=== PATIENT | male | born 1995 | race Caucasian/White ===

== ENCOUNTER 2022-10-20 18:57 | Emergency (ER) | payer BC, SELFPAY ==
[2022-10-20 19:05] VITALS: BP 135/79; PULSE 84; RESP 18; TEMP 37.2; O2SAT 99; BMI 17.2
[2022-10-20 19:18] VITALS: BP 130/78; PULSE 70; RESP 19; TEMP 36.9; O2SAT 98; BMI 17.2
--- NOTE | 2022-10-20 20:05 | EXP.UTC ---
Discharge Plan Disposition Patient Disposition: Home, Self-Care Condition: Good Prescriptions Prescriptions: New amoxicillin-pot clavulanate 875-125 mg Tablet 1 tab PO Q12H Qty: 20 0RF ibuprofen 600 mg tablet 600 mg PO Q6HP PRN (Reason: Moderate Pain) Qty: 20 0RF Referrals Follow up/Referrals: Provider,Referral, [Primary Care Provider] - See instructions Activity Restrictions/Add. Instructions Additional Instructions/Restrictions: Take medication as prescribed if you need something more than the Ibuprofen for pain you may take Tylenol Take antibiotics as prescribed Gargle warm salt water may help with discomfort and pain Call Dentist tomorrow and make appointment may take you a week or so to get in Rinse your mouth every 2 hours with salt water.?This will help keep the area clean. Gently brush your teeth twice a day with a soft tooth brush.?This will help keep the area clean. Eat soft foods as directed.?Soft foods may cause less pain. Examples include applesauce, yogurt, and cooked pasta. Apply a warm compress to your tooth or gum.?Use a cotton ball or gauze soaked in warm water. Remove the compress in 10 minutes or when it becomes cool. Repeat 3 times a day. Straight to ER if any life threatening symptoms Clinical Impressions Clinical Impression: Dental abscess Instructions Patient Instructions: Amoxicillin and Clavulanic Acid, DI for Tooth Abscess, DI for Tooth Decay Discharge ED Provider: Tami Wright [facility] General Stated complaint: Right side face pain and gum pain Mode of Arrival: Ambulatory Source of Information: Patient Limitations: No Limitations Time Seen by Provider: 10/20/22 20:10 Description of Symptoms (Recalled from Triage Doc. by RN): right bottom side of jaw is swollen and sore jaw HEENT Symptoms (Recalled from RN notes): Yes Resp Symptoms (Recalled from RN notes): No Skin Symptoms (Recalled from RN notes): No MS Symptoms (Recalled from RN notes): No Functional Status (Recalled from RN notes): n/a History of Present Illness Provider Complaint: Patient states that he has multiple teeth that is shattered States that he has several on his right lower gumline that is broke off at the gum States that he has had a knot on his right lower jaw area for several days that has got more swollen States that he has been using salt water gargles and it has helped a little but it is causing his whole jaw to hurt and shoot pain up through his jaw Related Data Previous Rx's Medication Instructions Recorded amoxicillin 875 mg-potassium 1 tab PO Q12H #20 tabs 10/20/22 clavulanate 125 mg tablet ibuprofen 600 mg tablet 600 mg PO Q6HP PRN Moderate Pain 10/20/22 #20 tabs Allergies Allergy/AdvReac Type Severity Reaction Status Date / Time No Known Allergies Allergy Verified 10/20/22 19:23 Worker's Comp Is this a Worker's Comp case?: No PFSH [facility] Disclaimer: The information contained in this section may have been updated after the patient was seen, as this information can be updated by other users. Social History Smoking Status: Current every day smoker alcohol intake: current current occupational status: unemployed Travel in the last 8 weeks: None ROS Obtained: Yes All systems reviewed & no additional complaints except as documented and Yes Systems reviewed as appropriate & no additional complaints except as documented Constitutional Constitutional: Reports system reviewed and no additional complaints, except as documented, Reports as per HPI and Denies fever(s) Eyes Eyes: Reports system reviewed and no additional complaints, except as documented and Reports as per HPI ENT Ears, Nose, Mouth, and Throat: Reports system reviewed and no additional complaints, except as documented, Reports as per HPI and Reports dental pain (swelling in right lower jaw area) Respiratory Respiratory: Reports system reviewed and no additional complaints, except as documented and Reports as
[2022-10-20 20:30] VITALS: BP 110/78; PULSE 86; RESP 18; TEMP 37.1; O2SAT 100
== END 2022-10-20 20:29 | disposition home or self-care (01) ==
PROVIDERS: Emergency Provider Nurse Practitioner
DX: R22.0 Localized swelling, mass and lump, head (principal); R51.9 Headache, unspecified; F17.210 Nicotine dependence, cigarettes, uncomplicated
CPT/HCPCS: 99204; 99212; G0463

== ENCOUNTER 2024-04-06 22:47 | Emergency (ER) | payer BC, SELFPAY ==
[2024-04-06 22:56] VITALS: BP 112/72; PULSE 80; RESP 18; TEMP 36.6; O2SAT 98; BMI 16.7
[2024-04-06 23:30] VITALS: BP 97/58; PULSE 84; O2SAT 95
--- NOTE | 2024-04-06 23:36 | XR_ITS ---
PROCEDURE INFORMATION: Exam: XR Chest Exam date and time: 04/06/2024 11:45 PM Age: 28 years old Clinical indication: Other: Syncope TECHNIQUE: Imaging protocol: Radiologic exam of the chest. Views: 2 views. COMPARISON: No relevant prior studies available. FINDINGS: Lungs: Unremarkable. No consolidation. Pleural spaces: Unremarkable. No pleural effusion. No pneumothorax. Heart/Mediastinum: Unremarkable. No cardiomegaly. Vasculature: Unremarkable. Bones/joints: Unremarkable. IMPRESSION: No acute findings.
--- NOTE | 2024-04-06 23:37 | CT_ITS ---
PROCEDURE INFORMATION: Exam: CT Abdomen And Pelvis With Contrast Exam date and time: 04/07/2024 12:06 AM Age: 28 years old Clinical indication: Abdominal pain; Additional info: Rlq abd pain TECHNIQUE: Imaging protocol: Computed tomography of the abdomen and pelvis with contrast. Radiation optimization: All CT scans at this facility use at least one of these dose optimization techniques: automated exposure control; mA and/or kV adjustment per patient size (includes targeted exams where dose is matched to clinical indication); or iterative reconstruction. Contrast material: ISOVUE; Contrast volume: 75 ml; Contrast route: IV; COMPARISON: CR XR CHEST 2V 04/06/2024 11:45 PM FINDINGS: Lungs: No acute finding. Liver: Normal. No mass. Gallbladder and biliary ducts: Normal. No calcified stones. No ductal dilation. Pancreas: Normal. No ductal dilation. Spleen: Normal. No splenomegaly. Adrenal glands: Normal. No mass. Kidneys and ureters: No hydronephrosis or stone disease. 8 mm cortical hypodensity lateral left kidney too small to fully characterize. Stomach and bowel: Unremarkable. No obstruction. No mucosal thickening. Appendix: No evidence of appendicitis. Intraperitoneal space: Unremarkable. No free air. No significant fluid collection. Vasculature: Unremarkable. No abdominal aortic aneurysm. Lymph nodes: Unremarkable. No enlarged lymph nodes. Urinary bladder: Unremarkable as visualized. Reproductive: Unremarkable as visualized. Bones/joints: Unremarkable. No acute fracture. Soft tissues: Unremarkable. IMPRESSION: There is no acute process evident within the abdomen or pelvis. Normal appendix. COMMENTS: Consistent with the [employer]'s Incidental Findings Committee white paper (J Am Natalia Radiol 2018): Any incidental renal lesion less than 1 cm or classified as too small to characterize, or any incidental cystic renal lesion characterized as simple-appearing, is likely benign. No follow-up imaging is recommended for these lesions per consensus recommendations based on imaging criteria.
--- NOTE | 2024-04-06 23:50 | ECG_ITS ---
APPROVED REPORT Exam: Resting ECG HR:72 bpm ECG Measurements Heart Rate 72 AXES DE 110 P 55 QRSd 97 QRS 84 QT 371 T 15 QTc 396 Conclusion SINUS RHYTHM WITH SHORT DE INTERVAL No delta wave, isolated T wave inversion in lead III, no STEMI Electronically signed by : ANASTASIA HALL, 04/07/2024 07:38:06
[2024-04-06 23:54] LABS: Basophils # 0.1 K/mm3 (0-0.2); Basophils % 0.5 % (0.1-2.0); Eosinophils # 0.1 K/mm3 (0.0-0.4); Eosinophils % 0.7 % (0.1-12.0); Hematocrit 44.1 % (42.0-52.0); Hemoglobin 14.9 g/dL (14.1-18.0); Lymphocytes # 2.3 K/mm3 (0.7-4.5); Lymphocytes % 15.9 % (10-50); Mean Corpuscular HGB Conc 33.8 g/dL (31.8-35.4); Mean Corpuscular Hemoglobin 31.5 pg (27.0-31.2); Mean Corpuscular Volume 93.1 fl (80-94); Mean Platelet Volume 9.7 fl (7.4-10.4); Monocytes # 0.7 K/mm3 (0.1-1.0); Monocytes % 4.6 % (1.7-9.3); Neutrophils # 11.4 K/mm3 (1.8-7.8); Neutrophils % 78.4 % (37.0-80.0); Platelet Count 212 K/mm3 (142-424); Red Blood Count 4.73 M/mm3 (4.60-6.20); Red Cell Distribution Width 12.9 % (11.5-17.5); White Blood Count 14.6 K/mm3 (4.8-10.8)
[2024-04-06] MEDS: LACTATED RINGERS 1000ML 1,000 ML 999 ML IV (23:56)
[2024-04-06] MEDS: KETOROLAC 30MG/ML VIAL 15 MG IV (23:57)
[2024-04-07] VITALS (8 sets, daily range): BP systolic 91–105; BP diastolic 53–67; PULSE 70–93; RESP 16; TEMP 36.6; O2SAT 96–100
--- NOTE | 2024-04-07 | PC.NURSE ---
Bladder scanned pt per MD 0mL
--- NOTE | 2024-04-07 00:01 | ED_ITS ---
Discharge Plan Disposition Patient Disposition: Home, Self-Care Condition: Good Prescriptions Prescriptions: No Action amoxicillin-pot clavulanate 875-125 mg Tablet 1 tab PO Q12H Qty: 20 0RF ibuprofen 600 mg tablet 600 mg PO Q6HP PRN (Reason: Moderate Pain) Qty: 20 0RF Referrals Follow up/Referrals: Provider,Referral, [Primary Care Provider] - See instructions Activity Restrictions/Add. Instructions Additional Instructions/Restrictions: You were evaluated in the ER and are appropriate for discharge at this time. Please make an appointment with your primary care doctor for reevaluation in 2 to 3 days. Drink plenty of water and eat a well-balanced diet. Return to the ER with new, worsening, or otherwise concerning symptoms. Clinical Impressions Clinical Impression: Syncope Instructions Patient Instructions: DI for Syncope in Adults (Fainting), DI for Syncope in Children (Fainting) Print Language Print Language: Tajik Discharge ED Provider: Del Iraheta General Adult HPI General Chief complaint: Syncope Stated complaint: passed out, constipation Time Seen by Provider: 04/06/24 23:15 Mode of Arrival: Ambulatory Source of Information: Patient Limitations: No Limitations Description of Symptoms (Recalled from ER Triage Doc. by RN): Pt reports to ED with cc of having a syncope episode. Pt states he was walking into the restroom when he passed out. Pt is unsure if he hit his head. Pt states having no symptoms prior to passing out. Pt states having blurry vision after waking up from passing out which has now cleared. Pt states having RLQ pain. PT states not being able to pee he states he feels like he has to pee then he isnt able to pee. Pt states having a bowel movement today. Pt denies any head, neck, or back pain. History of Present Illness HPI narrative: 28-year-old male presents to the ER after syncope. Patient states he stood up from a chair, walked to the restroom, had tunnel vision, and passed out. He believes he likely hit his head but immediately woke up. He states he briefly had blurry vision when he woke up but that completely cleared. He had no evidence of seizure-like activity, no tongue biting, did not urinate on himself, no history of seizures. Patient reports he is having right side/lower quadrant pain. He states he is having difficulty urinating and occasional dysuria. He states like he is needing to urinate but not passing much urine. He admits to occasionally having mild dysuria but no abnormal discharge, no concern for STI, no lesions. He states he did have a bowel movement today. He denies any other symptoms of being ill. He admits he has not had much to eat or drink in the last 24 hours. He denies fevers, chills, chest pain, difficulty breathing, he denies his syncopal episode being preceded by chest pain or headache, he denies nausea, vomiting, or diarrhea. Patient denies any daily medications or known drug allergies. Patient does admit to using marijuana earlier this evening, hours before his syncopal episode. He denies any other illicit drug use or IV drug use. He denies using any alcohol today. Related Data Previous Rx's ?Medication ?Instructions ?Recorded amoxicillin 875 mg-potassium 1 tab PO Q12H #20 tabs 10/20/22 clavulanate 125 mg tablet ibuprofen 600 mg tablet 600 mg PO Q6HP PRN Moderate Pain 10/20/22 #20 tabs Allergies Allergy/AdvReac Type Severity Reaction Status Date / Time No Known Allergies Allergy Verified 10/20/22 19:23 [facility] Disclaimer: The information contained in this section may have been updated after the patient was seen, as this information can be updated by other users. Social History (Updated 10/20/22 @ 20:23 by Tami Wright APRN) Smoking Status: Never smoker alcohol intake: current alcohol intake frequency: a few times a week current occupational status: unemployed Travel in the last 8 weeks: None ROS Obtained: Yes All systems reviewed & no additional complaints except as documented Positive ROS per HPI Physical Exam General General appearance: alert and in no apparent distress Head Head exam: atraumatic and normocephalic Eye Eye exam: Present PERRL and EOMI ENT ENT exam: Present mucous membranes moist and other (Poor dentition with numerous dental caries) Neck Neck exam: Present normal inspection and full ROM Chest Chest inspection: Present symmetric chest wall rise Respiratory Respiratory exam: Absent respiratory distress or stridor Cardiovascular Cardiovascular exam: Present regular rate and normal rhythm Abdominal Exam Abdominal exam: Present soft and tenderness (Mild right mid and lower quadrant abdominal tenderness); Absent distention, guarding or rebound exam: Present normal inspection (No discharge or lesions); Absent testicular tenderness or scrotal swelling Extremities Exam Extremities exam: Present full ROM Back Exam Back exam: Absent CVA tenderness (R) or CVA tenderness (L) Neurological Exam Neurological exam: Present alert and oriented X3; Absent motor sensory deficit Psychiatric Psychiatric exam: Present normal affect and normal mood Skin Skin exam: Present warm and dry Medical Decision Making Medical Records Medical records reviewed: Yes I reviewed the patient's medical records. Screening: Per USPSTF and CDC recommendations, given the prevalence of disease in our region, it is our hospital?s policy to screen for HIV and viral Hepatitis for all patients aged 18 and over and those with ongoing risk factors. MR Comment: Patient was treated in [facility] in September for dental abscess. [place] Inquiry Pt receiving controlled substance: No Vital Signs: 04/06/24 22:56 04/06/24 23:30 04/07/24 00:30 Temperature 97.8 F Temperature Source Oral Pulse Rate 84 77 Pulse Rate [Left Radial] 80 Pulse Rate [Orthostatic Lying Left Radial] Pulse Rate [Orthostatic Sitting Left Radial] Pulse Rate [Orthostatic Standing Left Radial] Respiratory Rate 18 Blood Pressure 97/58 L 97/59 L Blood Pressure [Orthostatic Lying Right Arm] Blood Pressure [Orthostatic Sitting Right Arm] Blood Pressure [Orthostatic Standing Right Arm] Blood Pressure [Right Arm] 112/72 Blood Pressure Mean [Right Arm] 85 Blood Pressure Source [Right Arm] Automatic Cuff Blood Pressure Position [Right Arm] Sitting 02 Sat by Pulse Oximetry 98 95 96 Oxygen Delivery Method Room Air 04/07/24 01:13 04/07/24 01:14 04/07/24 01:17 Temperature Temperature Source Pulse Rate 85 76 Pulse Rate [Left Radial] Pulse Rate [Orthostatic Lying Left Radial] 70 Pulse Rate [Orthostatic Sitting Left Radial] 73 Pulse Rate [Orthostatic Standing Left Radial] 93 H Respiratory Rate Blood Pressure 98/60 L 96/64 L Blood Pressure [Orthostatic Lying Right Arm] 98/60 L Blood Pressure [Orthostatic Sitting Right Arm] 96/64 L Blood Pressure [Orthostatic Standing Right Arm] 91/62 L Blood Pressure [Right Arm] Blood Pressure Mean [Right Arm] Blood Pressure Source [Right Arm] Blood Pressure Position [Right Arm] 02 Sat by Pulse Oximetry 100 100 Oxygen Delivery Method 04/07/24 01:30 04/07/24 02:00 04/07/24 02:30 Temperature Temperature Source Pulse Rate 87 75 78 Pulse Rate [Left Radial] Pulse Rate [Orthostatic Lying Left Radial] Pulse Rate [Orthostatic Sitting Left Radial] Pulse Rate [Orthostatic Standing Left Radial] Respiratory Rate Blood Pressure 97/53 L 100/62 L 104/67 L Blood Pressure [Orthostatic Lying Right Arm] Blood Pressure [Orthostatic Sitting Right Arm] Blood Pressure [Orthostatic Standing Right Arm] Blood Pressure [Right Arm] Blood Pressure Mean [Right Arm] Blood Pressure Source [Right Arm] Blood Pressure Position [Right Arm] 02 Sat by Pulse Oximetry 97 98 98 Oxygen Delivery Method Lab Data Lab Results 04/06/24 23:44: WBC 14.6 H, RBC 4.73, Hgb 14.9, Hct 44.1, MCV 93.1, MCH 31.5 H, MCHC 33.8, RDW 12.9, Plt Count 212, MPV 9.7, Neut % (Auto) 78.4, Lymph % (Auto) 15.9, [place] % (Auto) 4.6, Eos % (Auto) 0.7, Baso % (Auto) 0.5, Neut # (Auto) 11.4 H, Lymph # (Auto) 2.3, [place] # (Auto) 0.7, Eos # (Auto) 0.1, Baso # (Auto) 0.1, P T 13.3 H, INR 1.21 H, Sodium 136, Potassium 3.7, Chloride 104, Carbon Dioxide 32 H, Anion Gap 3.7 L, BUN 14, Creatinine 1.00, Estimated Creat Clear 78, Estimated GFR 89, Est GFR ( Amer) 108, Glucose 113 H, Calcium 9.2, Total Bilirubin 0.6, AST 25, ALT 21, Alkaline Phosphatase 42, Troponin I < 0.01, Total Protein 6.9, Albumin 4.5, Globulin 2.4, Albumin/Globulin Ratio 1.9 H, HIV 1&2 Antibody Rapid Nonreactive 04/07/24 00:40: Urine Color Yellow, Urine Appearance Clear, Urine pH 5.5, Ur Specific [place] <= 1.005, Urine Protein Negative, Urine Glucose (UA) Negative, Urine Ketones Negative, Urine Blood Negative, Urine Nitrate Negative, Urine Bilirubin Negative, Urine Urobilinogen 0.2, Ur Leukocyte Esterase Negative, Urine WBC Occasional, Ur Squamous Epith Cells Occasional, Urine Bacteria Trace 10/10/24 02:29: Troponin I < 0.01 04/06/24 23:44 04/06/24 23:44 Orders (Tests/Meds): ED MEDICATIONS Generic Name Dose Route Start Last Admin Trade Name Nick PRN Reason Stop Dose Admin Sodium Chloride 10 ml 04/07/24 00:11 04/07/24 00:11 Sodium Chloride 0.9% 10ml Syr (Rad Only) IV 05/07/24 00:10 10 ml NEEDED PRN Administration Maintain IV Site Discontinued Medications Generic Name Dose Route Start Last Admin Trade Name Freq PRN Reason Stop Dose Admin Lactated Ringer's 1,000 mls @ 999 mls/hr 04/06/24 23:54 04/06/24 23:56 Lactated Ringer's 1000 Ml Bag IV 04/07/24 00:54 999 mls/hr .Q1H1M ONE Administration Iopamidol 75 ml 04/07/24 00:11 04/07/24 00:11 Iopamidol-370 (76%);100ml Bottle IV 04/07/24 00:12 75 ml ONCE ONE Administration Ketorolac Tromethamine 15 mg 04/06/24 23:55 04/06/24 23:57 Ketorolac 30mg/Ml Vial IV 04/06/24 23:56 15 mg ONCE ONE Administration ORDERS Category Date Time Status CT abdomen pelvis w con Stat Cat Scan 04/06/24 23:37 Completed CXR 2 view (NOT portable) [XR chest 2V] Stat Exams 04/06/24 23:36 Completed CBC w/Auto Diff [Complete Blood Count Auto Diff] Stat Lab 04/06/24 23:44 Completed CMP [Comprehensive Metabolic Panel] Stat Lab 04/06/24 23:44 Completed HIV (1&2) Antibody Rapid Stat Lab 04/06/24 23:44 Completed Hep C Ab with Reflex to RNA Stat Lab 04/06/24 23:44 Received PT INR [Prothrombin Time INR] Stat Lab 04/06/24 23:44 Completed Trop I [Troponin I] Stat Lab 04/06/24 23:44 Completed Troponin I Q3H Lab 04/07/24 02:29 Completed Troponin I Q3H Lab 04/07/24 05:45 Ordered Urinalysis and Microscopic Stat Lab 04/07/24 00:40 Completed Medical Decision Narrative: In summary, this 28-year-old male presents to the emergency department today with syncope, dysuria, difficulty urinating, right lower quadrant discomfort. On initial evaluation patient is hemodynamically stable, afebrile, poor dentition, mild right mid abdomen and right lower quadrant abdominal tenderness without rebound or guarding, nonacute abdomen, no CVA tenderness. Differential diagnosis includes but is not limited to vasovagal syncope, I considered the possibility of arrhythmia, WPW, Brugada, HCM, electrolyte abnormality, dehydration, UTI, STI, pyelonephritis, kidney stone, appendicitis, biliary pathology, among others.. Based on these concerns, I ordered serum labs, ECG, troponin, chest x- ray, CT imaging. ECG personally interpreted demonstrates sinus rhythm, rate 72, normal axis, MD is slightly short but there is no delta wave, no findings of Brugada or HCM, no STEMI. Patient received IV fluids, Toradol for treatment. Labs personally reviewed demonstrate leukocytosis with WBC 14.6, normal hemoglobin, platelet normal at 212, PT/INR slightly elevated but nonspecific, nonactionable, CMP nonactionable, good kidney function, initial troponin undetectably low at less than 0.01, UA negative for findings of infection, no blood. Chest x-ray personally interpreted demonstrates no acute intrathoracic abnormality, see radiology read for final interpretation. CT imaging personally interpreted demonstrate no acute intra-abdominal or pelvic pathology, no findings of appendicitis, cholecystitis, kidney stone, or other abnormality. See radiology read for final interpretation. Orthostatic vitals overall reassuring, there was an increase in heart rate when patient went from sitting to standing however his blood pressure stayed stable in the 90s. Despite patient reporting he was been having difficulty urinating, he has passed urine freely in the ER and has postvoid residual of 0 mL in the bladder. Repeat troponin also undetectably low at less than 0.01. Patient has very reassuring cardiac workup, no findings of high risk syncope. On reassessment patient states his pain is resolved. He feels well at this time. He is tolerating oral intake and has eaten a sandwich and drink a full bottle of water. I believe he is appropriate for discharge with close outpatient follow-up. Patient was given instructions on symptomatic management, follow up instructions, and return precautions for the emergency department. Patient indicated understanding and was discharged in stable condition. Critical Care Critical Care Time Critical Care Time: No
[2024-04-07 00:03] LABS: INR 1.21 (0.9-1.1); Prothrombin Time 13.3 seconds (10.1-12.5)
[2024-04-07 00:09] LABS: Alanine Aminotransferase 21 U/L (12-78); Albumin Level 4.5 g/dl (3.5-5.0); Albumin/Globulin Ratio 1.9 (1.1-1.8); Alkaline Phosphatase 42 U/L (38-126); Anion Gap 3.7 mEq/L (5-15); Aspartate Amino Transferase 25 U/L (17-59); Bilirubin,Total 0.6 mg/dl (0.2-1.3); Blood Urea Nitrogen 14 mg/dl (9-20); Calcium 9.2 mg/dl (8.4-10.2); Carbon Dioxide 32 mmol/L (22.0-30.0); Chloride 104 mmol/L (98-107); Creatinine Clearance Estimated 78 mL/min (50-200); Estimated Glomerular Filt Rate 89 ml/min (>60); GFR (African American) 108 ML/MIN (>60); Globulin 2.4 g/dL (1.3-3.2); Glucose 113 mg/dl (74-100); Potassium 3.7 mmoL/L (3.5-5.1); Sodium 136 mmol/L (136-145); Total Protein,Serum 6.9 g/dl (6.3-8.2)
[2024-04-07] MEDS: SODIUM CHLORIDE 0.9% 10ML SYR (RAD ONLY) 10 ML IV (00:11)
[2024-04-07] MEDS: IOPAMIDOL-370 (76%);100ML BOTTLE 75 ML IV (00:11)
[2024-04-07 00:23] LABS: Troponin I < 0.01 ng/ml (0.00-0.034)
[2024-04-07 00:28] LABS: HIV (1&2) Antibody Rapid NONREACTIVE (NONREACTIVE)
[2024-04-07 00:47] LABS: Microscopic, Urine URINE MICROSCOPIC (MICROSCOPIC)
[2024-04-07 00:48] LABS: Appearance,Urine CLEAR (Clear); Bilirubin,Urine Negative (Negative); Blood, Urine Negative (Negative); Color,Urine YELLOW (Yellow); Glucose,Urine (UA) Negative (Negative); Ketones,Urine Negative (Negative); Leukocyte Esterase,Urine Negative (Negative); Nitrate,Urine Negative (Negative); PH,Urine 5.5 (5.0-8.5); Protein,Urine Negative (Negative); Specific Gravity, Urine <= 1.005 (1.005-1.030); Urobilinogen,Urine 0.2 EU/dl (0.2)
--- NOTE | 2024-04-07 00:50 | PC.NURSE ---
urine collected and sent to lab
[2024-04-07 01:01] LABS: Bacteria,Urine Trace /lpf; Squamous Epithelial Cell,Urine Occasional #/hpf (0-5); WBC,Urine Occasional #/hpf (0-3)
--- NOTE | 2024-04-07 01:34 | PC.NURSE ---
Bladder scan post residual 0mL
[2024-04-07 02:57] LABS: Troponin I < 0.01 ng/ml (0.00-0.034)
[2024-04-08 09:15] LABS: HCV Ab Non Reactive (Non Reactive)
[2024-04-08 20:14] LABS: Neisseria gonorrhoeae, NAA Negative (Negative)
== END 2024-04-07 03:10 | disposition home or self-care (01) ==
PROVIDERS: Emergency Medicine; Emergency Provider Nurse Practitioner Family
DX: R55 Syncope and collapse (principal); K59.00 Constipation, unspecified; R10.31 Right lower quadrant pain; H53.9 Unspecified visual disturbance
CPT/HCPCS: 71046; 74177; 80053; 81001; 84484; 85025; 85610; 86803; 87389; 87491; 87591; 93005; 96361; 96374; 99285; J1885; J7120; Q9967